=== PATIENT | female | born 1995 | race African-American/Black ===

== ENCOUNTER 2016-06-03 07:06 | Emergency (ER) | payer OTHER ==
[2016-06-03] MEDS ORDERED: ACETAMINOPHEN 325 MG TAB As Ordered ONE (07:28)
[2016-06-03 07:36] LABS: CONTROL LINE UCG INT CTR LINE PRESENT
--- NOTE | 2016-06-03 07:54 | EDDOCDS ---
Physician Documentation [facility] Name: Bia Garcia Age: 21 yrs Sex: Female : 1995 Arrival Date: 06/03/2016 Time: 07:06 Bed I5 / M5 Private MD: Disposition: 06/03/16 07:46 Discharged to Home/Self Care. Impression: Cystitis. - Condition is Stable. - Discharge Instructions: Urinary Tract Infection. - Prescriptions for Pyridium 200 mg Oral Tablet - take 1 tablet by ORAL route every 8 hours for 3 days; 9 tablet. Macrobid 100 mg Oral Capsule - take 100 milligrams by ORAL route every 12 hours for 5 days; 10 capsule. - Medication Reconciliation form. - Follow up: Emergency Department; When: As needed; Reason: Worsening of conditions. Follow up: Corbin Hernández [facility]; When: Call to arrange an appointment; Reason: Wound/Symptom Recheck, Recheck today's complaints, Worsening of conditions, Continuance of care. - Problem is an ongoing problem. - Symptoms are unchanged. Historical: - Allergies: no known allergies; - Home Meds: 1. none - PMHx: none; - PSHx: none; - Social history: Smoking status: Patient states was never smoker of tobacco. No barriers to communication noted, The patient speaks fluent Zambian, Speaks appropriately for age. - Family history: Not pertinent. - : The pt / caregiver states he / she is not on anticoagulants. Home medication list is obtained from the patient. - Exposure Risk Screening:: None identified. DIRECTOR OF RESEARCH AND DEVELOPMENT: 06/03 07:13 LMP 05/10/2016 mlb1 Vital Signs: 07:13 BP 125 / 68; Pulse 80; Resp 16; Temp 98.4(TE); Pulse Ox 99% on R/A; Weight 68.04 kg / mlb1 150 lbs (R); Height 5 ft. 5 in. (165.10 cm) (R); Pain 7/10; 07:13 Body Mass Index 24.96 (68.04 kg, 165.10 cm) mlb1 MDM: 07:19 UA Ordered. EDMS 07:19 UCG- In Lab Ordered. EDMS 07:22 Acetaminophen Tablet 650 mg PO once ordered. cc10 07:42 UA Reviewed. cc10 07:42 UCG- In Lab Reviewed. cc10 07:46 Financial registration complete. lg Administered Medications: 07:31 Drug: Acetaminophen 650 mg [acetaminophen 325 mg tablet (2 tabs)] Route: PO; sonido Signatures: Dispatcher [employer] Duy GonzalezRN RN Mairana Nye, Ashok Willis lg, RN RN mlb1 Adolfo Louis, PA-C PA-C cc10 MTDD
--- NOTE | 2016-06-03 07:54 | EDDOCDS ---
Nurse's Notes [facility] Name: Bia Garcia Age: 21 yrs Sex: Female : 1995 Arrival Date: 06/03/2016 Time: 07:06 Bed I5 / M5 Private MD: Diagnosis: Cystitis Presentation: 06/03 07:10 Presenting complaint: Patient states: Suprapubic pain with pain with urination and mlb1 hematuria pain began two days ago blood in urine today. Risk factors: the patient reports no vaginal bleeding. Adult Sepsis Screening: The patient does not have new or worsening altered mentation. Patient's respiratory rate is less than 22. Systolic blood pressure is greater than 100. Patient has a qSOFA score of 0- Negative Sepsis Screen. Suicide/Homicide risk assessment- the patient denies having any suicidal and/or homicidal ideations and does not present with any other emotional, behavioral or mental health complaints. 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 patient was not received from another setting of care. 07:10 Acuity: JOSEFA Level 4 mlb1 07:10 Method Of Arrival: Walkin/Carried/Asstd mlb1 Triage Assessment: 07:13 General: Appears in no apparent distress, Behavior is appropriate for age, cooperative. mlb1 Pain: Location: suprapubic area Pain currently is 7 out of 10 on a pain scale. Pt Declines HIV testing. : Reports hematuria pain with urination. 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 none - PMHx: none; - PSHx: none; - Social history: Smoking status: Patient states was never smoker of tobacco. No barriers to communication noted, The patient speaks fluent Bulgarian, Speaks appropriately for age. - Family history: Not pertinent. - : The pt / caregiver states he / she is not on anticoagulants. Home medication list is obtained from the patient. - Exposure Risk Screening:: None identified. Screenin:43 Screening information is obtained from the patient. Fall risk: No risks identified. jmk Assistance ADL's: requires no assistance with activities of daily living. Abuse/DV Screen: The patient / caregiver reports he/she is: not in a situation that causes fear, pain or injury. Nutritional screening: No deficits noted. Advance Directives: Currently, there is no health care proxy. There is no active DNR order. There is no living will. There is no Power of Certified Flight Instructor. home support is adequate. Assessment: 07:40 General: Appears in no apparent distress. Respiratory: No deficits noted. Airway is jmk patent. GI: Abdomen is flat, non- distended Bowel sounds present X 4 quads. Abd is soft and non tender. : Reports burning with urination. 07:42 General: Appears C/O diffuse head pain about forehead. Neuro intact. [facility] Vital Signs: 07:13 BP 125 / 68; Pulse 80; Resp 16; Temp 98.4(TE); Pulse Ox 99% on R/A; Weight 68.04 kg mlb1 (R); Height 5 ft. 5 in. (165.10 cm) (R); Pain 7/10; 07:13 Body Mass Index 24.96 (68.04 kg, 165.10 cm) [facility] Vitals: 07:13 Log In Time: June 03, 2016 at 07:03. b1 ED Course: 07:08 Patient visited by Anabel Boone. mm15 07:08 Patient moved to Waiting mm15 07:10 Patient visited by Ashok Oconnor, RN. mlb1 07:12 Triage Initiated mlb1 07:14 Patient visited by Ashok Oconnor, RN. mlb1 07:14 Patient visited by Ashok Oconnor, RN. mlb1 07:15 Patient moved to I5 / M5 mlb1 07:17 Adolfo Louis PA-C is PHCP. cc10 07:18 Hesham Matthews MD is Attending Physician. cc10 07:20 UCG- In Lab Sent. jmk 07:20 UA Sent. jmk 07:22 Patient visited by Adolfo Louis PA-C. cc10 07:22 Patient visited by Adolfo Louis PA-C. cc10 07:43 The patient / caregiver is instructed regarding the plan of care and ED course. jmk 07:46 Corbin Hernández [facility] is Referral Physician. cc10 07:53 No IV's were initiated during this patient's visit. No procedures done that require k assistance. Administered Medications: 07:31 Drug: Acetaminophen 650 mg [acetaminophen 325 mg tablet (2 tabs)] Route: PO; k Order Results: Lab Order: UA; SPEC'M 06/03/16 07:18 Test: APPEARANCE, URINE; Value: CLEAR; Range: CLEAR; Status: F Test: COLOR, URINE; Value: YELLOW; Range: YELLOW; Status: F Test: PH,URINE; Value: 7.0; Range: 5.0-9.0; Units: UNITS; Status: F Test: SPECIFIC GRAVITY URINE AUTO; Value: 1.015; Range: 1.002-1.035; Status: F Test: PROTEIN, URINE AUTO; Value: NEGATIVE; Range: NEGATIVE; Units: mg/dL; Status: F Test: GLUCOSE, URINE (UA) AUTO; Value: NEGATIVE; Range: NEGATIVE; Units: mg/dL; Status: F Test: KETONE, URINE AUTO; Value: NEGATIVE; Range: NEGATIVE; Units: mg/dL; Status: F Test: UROBILINOGEN, URINE AUTO; Value: 0.2; Range: 0.0-2.0; Units: mg/dL; Status: F Test: BILIRUBIN, URINE AUTO; Value: NEGATIVE; Range: NEGATIVE; Status: F Test: NITRITE, URINE AUTO; Value: NEGATIVE; Range: NEGATIVE; Status: F Test: LEUKOCYTE ESTERASE, URINE AUTO; Value: 2+; Range: NEGATIVE; Abnormal: Above high normal; Status: F Test: BLOOD, URINE BLOOD; Value: 1+; Range: NEGATIVE; Abnormal: Above high normal; Status: F Test: WBC, URINE AUTO; Value: 47; Range: 0-3; Abnormal: Above high normal; Units: /HPF; Status: F Test: RBC, URINE AUTO; Value: 10; Range: 0-3; Abnormal: Above high normal; Units: /HPF; Status: F Test: BACTERIA, URINE AUTO; Value: 1+; Range: NEGATIVE; Abnormal: Above high normal; Status: F Test: SQUAMOUS EPITHELIAL CELL UR AU; Value: 1; Range: 0-6; Units: /HPF; Status: F Test: HYALINE CAST, URINE AUTO; Value: 0; Range: 0-1; Units: /LPF; Status: F Lab Order: UCG- In Lab; SPEC'M 06/03/16 07:18 Test: URINE PREG TEST; Value: NEGATIVE; Range: NEGATIVE; Status: F Outcome: 07:46 Discharge ordered by Provider. 10 07:53 Discharge Assessment: Patient awake, alert and oriented x 3. No cognitive and/or k functional deficits noted. Patient verbalized understanding of disposition instructions. patient administered narcotics - no. The following High Risk Discharge criteria are identified: None. Discharged to home ambulatory. Condition: good. Discharge instructions given to patient, Instructed on discharge instructions, follow up and referral plans. medication usage, Demonstrated understanding of instructions, medications, Patient was not receptive of discharge instructions. Prescriptions given X 2. No special radiology studies were completed. Property :Personal belongings accompany Pt. 07:53 Patient left the ED. [facility] Signatures: Duy Freeman,RN RN Ashok Weiss RN RN Anabel Sahu mm15 Adolfo Louis, PAMehran PAMehran cc10 Corrections: (The following items were deleted from the chart) 07:14 07:13 LMP 04/26/2016 uday frye MTDD
--- NOTE | 2016-06-05 08:55 | EDDOCDS ---
Nurse's Notes [facility] Name: Bia Garcia Age: 21 yrs Sex: Female : 1995 Arrival Date: 06/03/2016 Time: 07:06 Bed I5 / M5 Private MD: Diagnosis: Cystitis Presentation: 06/03 07:10 Presenting complaint: Patient states: Suprapubic pain with pain with urination and mlb1 hematuria pain began two days ago blood in urine today. Risk factors: the patient reports no vaginal bleeding. Adult Sepsis Screening: The patient does not have new or worsening altered mentation. Patient's respiratory rate is less than 22. Systolic blood pressure is greater than 100. Patient has a qSOFA score of 0- Negative Sepsis Screen. Suicide/Homicide risk assessment- the patient denies having any suicidal and/or homicidal ideations and does not present with any other emotional, behavioral or mental health complaints. 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 patient was not received from another setting of care. 07:10 Acuity: JOSEFA Level 4 mlb1 07:10 Method Of Arrival: Walkin/Carried/Asstd mlb1 Triage Assessment: 07:13 General: Appears in no apparent distress, Behavior is appropriate for age, cooperative. mlb1 Pain: Location: suprapubic area Pain currently is 7 out of 10 on a pain scale. Pt Declines HIV testing. : Reports hematuria pain with urination. 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 none - PMHx: none; - PSHx: none; - Social history: Smoking status: Patient states was never smoker of tobacco. No barriers to communication noted, The patient speaks fluent Kiswahili, Speaks appropriately for age. - Family history: Not pertinent. - : The pt / caregiver states he / she is not on anticoagulants. Home medication list is obtained from the patient. - Exposure Risk Screening:: None identified. Screenin:43 Screening information is obtained from the patient. Fall risk: No risks identified. jmk Assistance ADL's: requires no assistance with activities of daily living. Abuse/DV Screen: The patient / caregiver reports he/she is: not in a situation that causes fear, pain or injury. Nutritional screening: No deficits noted. Advance Directives: Currently, there is no health care proxy. There is no active DNR order. There is no living will. There is no Power of Scaler. home support is adequate. Assessment: 07:40 General: Appears in no apparent distress. Respiratory: No deficits noted. Airway is jmk patent. GI: Abdomen is flat, non- distended Bowel sounds present X 4 quads. Abd is soft and non tender. : Reports burning with urination. 07:42 General: Appears C/O diffuse head pain about forehead. Neuro intact. [facility] Vital Signs: 07:13 BP 125 / 68; Pulse 80; Resp 16; Temp 98.4(TE); Pulse Ox 99% on R/A; Weight 68.04 kg mlb1 (R); Height 5 ft. 5 in. (165.10 cm) (R); Pain 7/10; 07:13 Body Mass Index 24.96 (68.04 kg, 165.10 cm) [facility] Vitals: 07:13 Log In Time: June 03, 2016 at 07:03. b1 ED Course: 07:08 Patient visited by Anabel Boone. mm15 07:08 Patient moved to Waiting mm15 07:10 Patient visited by Ashok Oconnor, RN. mlb1 07:12 Triage Initiated mlb1 07:14 Patient visited by Ashok Oconnor, RN. mlb1 07:14 Patient visited by Ashok Oconnor, RN. mlb1 07:15 Patient moved to I5 / M5 mlb1 07:17 Adolfo Louis PA-C is PHCP. cc10 07:18 Hesham Matthews MD is Attending Physician. cc10 07:20 UCG- In Lab Sent. jmk 07:20 UA Sent. jmk 07:22 Patient visited by Adolfo Louis PA-C. cc10 07:22 Patient visited by Adolfo Louis PA-C. cc10 07:43 The patient / caregiver is instructed regarding the plan of care and ED course. jmk 07:46 Corbin Hernández [facility] is Referral Physician. cc10 07:53 No IV's were initiated during this patient's visit. No procedures done that require k assistance. 08:18 Patient name changed from Bia\S\\S\Radha\S\ to Bia\S\Tamika\S\Radha. EDMS 08:19 [facility] [place] was scanned into [employer] and attached to record. lg 14:05 T-Sheet-- Draft Copy was scanned into [employer] and attached to record. gb Administered Medications: 07:31 Drug: Acetaminophen 650 mg [acetaminophen 325 mg tablet (2 tabs)] Route: PO; jmk Order Results: Lab Order: UA; SPEC'M 06/03/16 07:18 Test: APPEARANCE, URINE; Value: CLEAR; Range: CLEAR; Status: F Test: COLOR, URINE; Value: YELLOW; Range: YELLOW; Status: F Test: PH,URINE; Value: 7.0; Range: 5.0-9.0; Units: UNITS; Status: F Test: SPECIFIC GRAVITY URINE AUTO; Value: 1.015; Range: 1.002-1.035; Status: F Test: PROTEIN, URINE AUTO; Value: NEGATIVE; Range: NEGATIVE; Units: mg/dL; Status: F Test: GLUCOSE, URINE (UA) AUTO; Value: NEGATIVE; Range: NEGATIVE; Units: mg/dL; Status: F Test: KETONE, URINE AUTO; Value: NEGATIVE; Range: NEGATIVE; Units: mg/dL; Status: F Test: UROBILINOGEN, URINE AUTO; Value: 0.2; Range: 0.0-2.0; Units: mg/dL; Status: F Test: BILIRUBIN, URINE AUTO; Value: NEGATIVE; Range: NEGATIVE; Status: F Test: NITRITE, URINE AUTO; Value: NEGATIVE; Range: NEGATIVE; Status: F Test: LEUKOCYTE ESTERASE, URINE AUTO; Value: 2+; Range: NEGATIVE; Abnormal: Above high normal; Status: F Test: BLOOD, URINE BLOOD; Value: 1+; Range: NEGATIVE; Abnormal: Above high normal; Status: F Test: WBC, URINE AUTO; Value: 47; Range: 0-3; Abnormal: Above high normal; Units: /HPF; Status: F Test: RBC, URINE AUTO; Value: 10; Range: 0-3; Abnormal: Above high normal; Units: /HPF; Status: F Test: BACTERIA, URINE AUTO; Value: 1+; Range: NEGATIVE; Abnormal: Above high normal; Status: F Test: SQUAMOUS EPITHELIAL CELL UR AU; Value: 1; Range: 0-6; Units: /HPF; Status: F Test: HYALINE CAST, URINE AUTO; Value: 0; Range: 0-1; Units: /LPF; Status: F Lab Order: UCG- In Lab; SPEC'M 06/03/16 07:18 Test: URINE PREG TEST; Value: NEGATIVE; Range: NEGATIVE; Status: F Outcome: 07:46 Discharge ordered by Provider. cc10 07:53 Discharge Assessment: Patient awake, alert and oriented x 3. No cognitive and/or k functional deficits noted. Patient verbalized understanding of disposition instructions. patient administered narcotics - no. The following High Risk Discharge criteria are identified: None. Discharged to home ambulatory. Condition: good. Discharge instructions given to patient, Instructed on discharge instructions, follow up and referral plans. medication usage, Demonstrated understanding of instructions, medications, Patient was not receptive of discharge instructions. Prescriptions given X 2. No special radiology studies were completed. Property :Personal belongings accompany Pt. 07:53 Patient left the ED. sonido Signatures: Dispatcher [employer] EDMS Duy Freeman,RN RN Margie Pope, Reg Reg gb Mariana Jones, Reg Reg lg Elvin, Ashok Hdz RN RN Anabel Sahu mm15 Adolfo Louis, PA-C PA-C cc10 Corrections: (The following items were deleted from the chart) 07:14 07:13 LMP 04/26/2016 uday frye Chart Complete MTDD
--- NOTE | 2016-06-05 08:55 | EDDOCDS ---
Physician Documentation [facility] Name: Bia Garcia Age: 21 yrs Sex: Female : 1995 Arrival Date: 06/03/2016 Time: 07:06 Bed I5 / M5 Private MD: Disposition: 06/03/16 07:46 Discharged to Home/Self Care. Impression: Cystitis. - Condition is Stable. - Discharge Instructions: Urinary Tract Infection. - Prescriptions for Pyridium 200 mg Oral Tablet - take 1 tablet by ORAL route every 8 hours for 3 days; 9 tablet. Macrobid 100 mg Oral Capsule - take 100 milligrams by ORAL route every 12 hours for 5 days; 10 capsule. - Medication Reconciliation form. - Follow up: Emergency Department; When: As needed; Reason: Worsening of conditions. Follow up: Corbin Hernández [facility]; When: Call to arrange an appointment; Reason: Wound/Symptom Recheck, Recheck today's complaints, Worsening of conditions, Continuance of care. - Problem is an ongoing problem. - Symptoms are unchanged. Historical: - Allergies: no known allergies; - Home Meds: 1. none - PMHx: none; - PSHx: none; - Social history: Smoking status: Patient states was never smoker of tobacco. No barriers to communication noted, The patient speaks fluent Mosotho, Speaks appropriately for age. - Family history: Not pertinent. - : The pt / caregiver states he / she is not on anticoagulants. Home medication list is obtained from the patient. - Exposure Risk Screening:: None identified. RN TRAVEL: 06/03 07:13 LMP 05/10/2016 mlb1 Vital Signs: 07:13 BP 125 / 68; Pulse 80; Resp 16; Temp 98.4(TE); Pulse Ox 99% on R/A; Weight 68.04 kg / mlb1 150 lbs (R); Height 5 ft. 5 in. (165.10 cm) (R); Pain 7/10; 07:13 Body Mass Index 24.96 (68.04 kg, 165.10 cm) mlb1 MDM: 07:19 UA Ordered. EDMS 07:19 UCG- In Lab Ordered. EDMS 07:22 Acetaminophen Tablet 650 mg PO once ordered. cc10 07:42 UA Reviewed. cc10 07:42 UCG- In Lab Reviewed. cc10 07:46 Financial registration complete. lg 08:19 [facility] Payment Agreement was scanned into [employer] and attached to record. lg 14:05 T-Sheet-- Draft Copy was scanned into [employer] and attached to record. gb Administered Medications: 07:31 Drug: Acetaminophen 650 mg [acetaminophen 325 mg tablet (2 tabs)] Route: PO; osnido Signatures: Dispatcher [employer] Duy Gonzalez RN RN Margie Pope, Reg Reg gb Mariana Jones, Reg Reg lg Ashok Oconnor RN RN mlb1 Adolfo Louis, PA-C PA-C cc10 The chart was reviewed and I authenticate all verbal orders and agree with the evaluation and treatment provided.Attachments: 08:19 [facility] Payment Agreement lg 14:05 T-Sheet-- Draft Copy gb Chart Complete MTDD
--- NOTE | 2016-06-05 08:55 | EDDOCDS ---
Physician Documentation [facility] Name: Bia Garcia Age: 21 yrs Sex: Female : 1995 Arrival Date: 06/03/2016 Time: 07:06 Bed I5 / M5 Private MD: Disposition: 06/03/16 07:46 Discharged to Home/Self Care. Impression: Cystitis. - Condition is Stable. - Discharge Instructions: Urinary Tract Infection. - Prescriptions for Pyridium 200 mg Oral Tablet - take 1 tablet by ORAL route every 8 hours for 3 days; 9 tablet. Macrobid 100 mg Oral Capsule - take 100 milligrams by ORAL route every 12 hours for 5 days; 10 capsule. - Medication Reconciliation form. - Follow up: Emergency Department; When: As needed; Reason: Worsening of conditions. Follow up: Corbin Hernández [facility]; When: Call to arrange an appointment; Reason: Wound/Symptom Recheck, Recheck today's complaints, Worsening of conditions, Continuance of care. - Problem is an ongoing problem. - Symptoms are unchanged. Historical: - Allergies: no known allergies; - Home Meds: 1. none - PMHx: none; - PSHx: none; - Social history: Smoking status: Patient states was never smoker of tobacco. No barriers to communication noted, The patient speaks fluent Kenyan, Speaks appropriately for age. - Family history: Not pertinent. - : The pt / caregiver states he / she is not on anticoagulants. Home medication list is obtained from the patient. - Exposure Risk Screening:: None identified. 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 5 in. (165.10 cm) (R); Pain 7/10; 07:13 Body Mass Index 24.96 (68.04 kg, 165.10 cm) mlb1 MDM: 07:19 UA Ordered. EDMS 07:19 UCG- In Lab Ordered. EDMS 07:22 Acetaminophen Tablet 650 mg PO once ordered. cc10 07:42 UA Reviewed. cc10 07:42 UCG- In Lab Reviewed. cc10 07:46 Financial registration complete. lg 08:19 [facility] Payment Agreement was scanned into [employer] and attached to record. lg 14:05 T-Sheet-- Draft Copy was scanned into [employer] and attached to record. gb Administered Medications: 07:31 Drug: Acetaminophen 650 mg [acetaminophen 325 mg tablet (2 tabs)] Route: PO; sonido Signatures: Dispatcher [employer] Duy Gonzalez RN RN Margie Pope, Reg Reg gb Mariana Jones, Reg Reg lg Ashok Oconnor RN RN mlb1 Adolfo Louis, PA-C PA-C cc10 The chart was reviewed and I authenticate all verbal orders and agree with the evaluation and treatment provided.Attachments: 08:19 [facility] Payment Agreement lg 14:05 T-Sheet-- Draft Copy gb Chart Complete MTDD
== END 2016-06-03 07:53 | disposition home or self-care (01) ==
LOC: M ED 07:06
DX: N30.90 Cystitis, unspecified without hematuria (principal)

== ENCOUNTER 2018-06-21 10:09 | Emergency (ER) | payer OTHER ==
[~2018-06-21] VITALS: Ht 165.1 cm; Wt 89.1 kg
[2018-06-21] MEDS ORDERED: IBUPROFEN 600 MG TAB PO ONE (11:30)
--- NOTE | 2018-06-21 12:35 | REP ---
PELVIC SONOGRAPHY: HISTORY: Right-sided pelvic pain. Question ovarian cyst. FINDINGS: Transabdominal and transvaginal scanning are performed. Study is inhibited by patient's inability to move and remained calm. Apparently, she had difficulty with rigidity and shaking during the examination. The visualized bladder park are smooth. Uterine dimensions are normal at 6.8 x 3.5 x 3.7 cm. Endometrial echo is 0.3 cm thick and centrally placed. No focal uterine mass is seen. Uterus is retroverted and retroflexed. Normal ovaries are seen bilaterally. Right ovary measures 4.4 x 2.4 x 2.7 cm. Left ovary measures 4.7 x 2.5 x 3.9 cm. Doppler flow is normal to both ovaries. Resistive indices are 0.69 on the right and 0.59 on the left. IMPRESSION: Retroverted, retroflexed uterus. Otherwise, negative pelvic sonography. No morphologic abnormality. Electronically Signed by Eric Sewell MD 06/21/2018 08:35 P
[2018-06-21] MEDS ORDERED: IBUP80TA PO (13:33)
[2018-06-21 13:41] VITALS: BP 131/70
== END 2018-06-21 13:47 | disposition home or self-care (01) ==
LOC: M ED 10:09 → EDSEX 10:09 → M ED 13:47
DX: R10.2 Pelvic and perineal pain (principal); N92.6 Irregular menstruation, unspecified

== ENCOUNTER 2019-11-10 04:04 | Emergency (ER) | payer OTHER ==
[~2019-11-10] VITALS: Ht 165.1 cm; Wt 120.0 kg
[~2019-11-10 04:04] MED LIST: IBUP80TA PO; RALTEGRAVIR 400 MG TAB (ISENTRESS) PO SCH; TRUVADA 200MG/300MG TABLET PO SCH
[2019-11-10 04:05] VITALS: BP 142/99
[2019-11-10] MEDS ORDERED: EXPOSURE KIT-ADULT 7 DAY SUPPLY PO ONE (06:00)
[2019-11-10] MEDS ORDERED: AZITHROMYCIN 250MG TABLET PO ONE (06:00)
[2019-11-10] MEDS ORDERED: cefTRIAXone SOD 250MG VIAL (J0696 PER 250MG) IM ONE (06:00)
[2019-11-10] MEDS ORDERED: LIDOCAINE 1% SDV 5ML VIAL DILUENT ONE (06:00)
[2019-11-10] MEDS ORDERED: DOXY100C37 PO (06:11)
[2019-11-10] MEDS ORDERED: RALT40TA PO (06:11)
[2019-11-10] MEDS ORDERED: TRUVTAB PO (06:11)
[2019-11-10] MEDS ORDERED: RALTEGRAVIR 400 MG TAB (ISENTRESS) PO ONE (06:30)
[2019-11-10] MEDS ORDERED: TRUVADA 200MG/300MG TABLET PO ONE (06:30)
[2019-11-10 07:47] LABS: CHLAMYDIA DNA AMPLIFICATION NEGATIVE (NEGATIVE); GC DNA AMPLIFICATION NEGATIVE (NEGATIVE)
[2019-11-10 07:49] LABS: CHLAMYDIA DNA AMPLIFICATION NEGATIVE (NEGATIVE); GC DNA AMPLIFICATION NEGATIVE (NEGATIVE)
[2019-11-10] MEDS ORDERED: FLAG500T PO (11:02)
== END 2019-11-10 06:53 | disposition home or self-care (01) ==
LOC: M ED 04:04
DX: Z04.41 Encounter for examination and observation following alleged adult rape (principal)
CPT/HCPCS: 87210; 87491; 87591; 96372; 99283; J0696

== ENCOUNTER 2020-05-15 13:36 | Outpatient (CLI) | payer OTHER ==
[2020-05-15] VITALS (9 sets, daily range): BP systolic 132–164; BP diastolic 75–96
[~2020-05-15] VITALS: Ht 157.5 cm; Wt 126.9 kg
[~2020-05-15 13:36] MED LIST changes: +DOXY100C37 PO; +FLAG500T PO; +RALT40TA PO; -RALTEGRAVIR 400 MG TAB (ISENTRESS) PO SCH; -TRUVADA 200MG/300MG TABLET PO SCH; +TRUVTAB PO
[2020-05-15] MEDS ORDERED: ACET325C5 PO (14:18)
[2020-05-15] MEDS ORDERED: PRENTAB9 PO (14:18)
[2020-05-15] MEDS ORDERED: ASPI81CH33 PO (14:20)
[2020-05-15 15:28] LABS: HEMATOCRIT 37.2 % (36.0-47.0); HEMOGLOBIN 12.3 g/dl (12.0-15.5); MEAN CORPUSCULAR HEMOGLOBIN 29.5 pg (27.0-33.0); MEAN CORPUSCULAR HGB CONC 33.1 g/dl (32.0-36.5); MEAN CORPUSCULAR VOLUME 89.2 fl (80.0-96.0); PLATELET COUNT, AUTOMATED 257 10^3/uL (150-450); RED BLOOD COUNT 4.17 10^6/uL (4.00-5.40); WHITE BLOOD COUNT 7.5 10^3/uL (4.0-10.0)
[2020-05-15 15:45] LABS: HEMOGLOBIN A1c 4.9 %
[2020-05-15 15:59] LABS: TOTAL PROTEIN,RANDOM URINE 23.3 MG/DL (0.0-12.0)
[2020-05-15 16:03] LABS: ALT/SGPT 22 U/L (12-78); BILIRUBIN,TOTAL 0.3 MG/DL (0.2-1.0); BLOOD UREA NITROGEN 4 MG/DL (7-18); CALCIUM LEVEL 8.9 MG/DL (8.5-10.1); CARBON DIOXIDE LEVEL 26 MEQ/L (21-32); CHLORIDE LEVEL 104 MEQ/L (98-107); CREATININE FOR GFR 0.75 MG/DL (0.55-1.30); GLOMERULAR FILTRATION RATE > 60.0 (>60); GLUCOSE, FASTING 76 MG/DL (70-100); LDH LACTATE DEHYDROGENASE 229 U/L (84-246); POTASSIUM SERUM 3.1 MEQ/L (3.5-5.1); SODIUM LEVEL 137 MEQ/L (136-145); URIC ACID 2.2 MG/DL (2.6-6.0)
--- NOTE | 2020-05-15 16:05 | REP ---
INDICATION: IUP 28 WEEKS GESTATION, RIGHT UPPER QUAD PAIN COMPARISON: None. TECHNIQUE: Real time moreno scale ultrasound examination using curved array transducer. FINDINGS: Liver is normal in contour, size, and echogenicity without focal hepatic lesions identified. Pancreas is incompletely evaluated due to interposed bowel gas. Gallbladder demonstrates layering sludge and positive sonographic Melo sign. No associated gallbladder wall thickening, pericholecystic fluid, or biliary ductal dilatation is appreciated. Common bile duct measures 3 mm diameter. Right kidney is normal in reniform shape without hydronephrosis or perinephric stranding and measures 11.3 x 5.8 x 4.6 cm. No ascites in the visualized right upper quadrant. IMPRESSION: Gallbladder with sludge and positive sonographic Melo sign are nonspecific findings and although there is no wall thickening or pericholecystic fluid and no biliary ductal dilatation, early acute cholecystitis cannot definitively be excluded. <Electronically signed by Aaron Guzman > 05/15/20 [id number]
--- NOTE | 2020-05-15 16:07 | REP ---
INDICATION: 28 WEEKS GESTATION, ELEVATED BP COMPARISON: None. TECHNIQUE: Transabdominal obstetrical ultrasound with color Doppler evaluation. FINDINGS: Examination demonstrates a single live intrauterine in cephalic presentation. motion is identified by technologist. Placenta is noted anterior and grade 1 without evidence for placenta previa or abruption. heart rate: 144 BPM RAMONA: 14.2 cm (9.4-22.8) Biophysical profile score: 8/8 Umbilical artery SD ratio: 2.14 (2.09-4.36) IMPRESSION: Single live intrauterine in cephalic presentation. Biophysical profile score and amniotic fluid volume are normal. <Electronically signed by Aaron Guzman > 05/15/20 [id number]
--- NOTE | 2020-05-15 17:47 | IPNPDOC ---
Text Note Date of Service The patient was seen on 05/15/20. NOTE 24 YO SENT FROM OFFICE WITH HISTORY ELEVATED BP,, RUQ PAIN, BLURRY VISION FOR EVALUATION RE POSSIBLE PRE E . LMP 10/23/19 EDC 08/07/2020 AT 27.6 WEEKS . RISK FACTORS CHTN BMI 41.6 REVIEW WITH PATIENT BLURRED VISION NOT WEARING GLASSES X 1 WEEK . ACUTE ONSET RUQ PAIN . DENIES FOOD ISSUES PRESENTLY COLLECTING 24 HOUR URINE. ASSESSMENT HERE PRE E LABS NORMAL P/C RATIO 0.02 LIVER ENZYMES NORMAL . CATAGORY 1 STRIP NO CONTRACTIONS NO DECELERATIONS MODERATE VARIBILITY BASELINE NORMAL. POSITIVE MELO SIGN, US CONFIRM ACUTE CHOLECYSTITIS.BLOOD PRESSURE ARE MID RANGE CORRELATES WITH CHTN HISTORY . PLAN CONTINUE 24 HOUR COLLECTION URINE, TAKE BP MEDICATION F/UP OFFICE WITH BP CHECKS . CONTINUE WITH ASA DAILY. VS,Fishbone, I+O VS, Fishbone, I+O Item Value Date Time Urine Random Creatinine 115.0 MG/DL 05/15/20 1520 Urine Random Total Protein 23.3 MG/DL H 05/15/20 1520 Item Value Date Time Sodium Level 137 MEQ/L 05/15/20 1519 Potassium Level 3.1 MEQ/L L 05/15/20 1519 Chloride Level 104 MEQ/L 05/15/20 1519 Carbon Dioxide Level 26 MEQ/L 05/15/20 1519 Anion Gap 7 MEQ/L L 05/15/20 1519 Blood Urea Nitrogen 4 MG/DL L 05/15/20 1519 Creatinine 0.75 MG/DL 05/15/20 1519 Glomerular Filtration Rate > 60.0 05/15/20 1519 Fasting Glucose 76 MG/DL 05/15/20 1519 Estimated Mean Plasma Glucose 94 MG/DL 05/15/20 1519 Hemoglobin A1c 4.9 % 05/15/20 1519 Uric Acid 2.2 MG/DL L 05/15/20 1519 Calcium Level 8.9 MG/DL 05/15/20 1519 Total Bilirubin 0.3 MG/DL 05/15/20 1519 Aspartate Amino Transf (AST/SGOT) 17 U/L 05/15/20 1519 Alanine Aminotransferase (ALT/SGPT) 22 U/L 05/15/20 1519 Lactate Dehydrogenase 229 U/L 05/15/20 1519 Item Value Date Time White Blood Count 7.5 10^3/uL 05/15/20 1519 Red Blood Count 4.17 10^6/uL 05/15/20 1519 Hemoglobin 12.3 g/dl 05/15/20 1519 Hematocrit 37.2 % 05/15/20 1519 Mean Corpuscular Volume 89.2 fl 05/15/20 1519 Mean Corpuscular Hemoglobin 29.5 pg 05/15/20 1519 Mean Corpuscular Hemoglobin Concent 33.1 g/dl 05/15/20 1519 Red Cell Distribution Width 13.3 % 05/15/20 1519 Platelet Count 257 10^3/uL 05/15/20 1519 Nucleated Red Blood Cells % (auto) 0.0 % 05/15/20 1519 Laboratory Tests 05/15/20 15:19 Vital Signs Date Time Temp Pulse Resp B/P (MAP) Pulse Ox O2 Delivery O2 Flow Rate FiO2 05/15/20 17:00 98.5 18 05/15/20 16:33 92 157/84 (108) 05/15/20 14:49 99 Room Air [facility] NAME: KAMRAN BURRELL DATE OF : 1995 AGE: 25 SEX: F REPORT #: [id number] ROOM: [facility] TECHNOLOGIST: [facility] DOCTOR: Adelso Arredondo MD Ordered for Date&Time: 05/15/20 1509 cc: [~ rep ct ivnm] Service Date&Time: 05/15/20 1552 This report is in Signed status. If this report is in a DRAFT status it has not yet been reviewed by the radiologist for accuracy. Thank you for having your radiology procedures performed at [facility] RADIOLOGY REPORT Date&Time printed: [~ rep prt dt last] [~ rep prt tm last] Page 2 of 2 [place] [address] RADIOLOGY REPORT This report is in Signed status. If this report is in a DRAFT status it has not yet been reviewed by the radiologist for accuracy. Thank you for having your radiology procedures performed at [facility] RADIOLOGY REPORT Date&Time printed: [~ rep prt dt last] [~ rep prt tm last] Page 1 of 2 INDICATION: 28 WEEKS GESTATION, ELEVATED BP COMPARISON: None. TECHNIQUE: Transabdominal obstetrical ultrasound with color Doppler evaluation. FINDINGS: Examination demonstrates a single live intrauterine in cephalic presentation. motion is identified by technologist. Placenta is noted anterior and grade 1 without evidence for placenta previa or abruption. heart rate: 144 BPM RAMONA: 14.2 cm (9.4-22.8) Biophysical profile score: 8/8 Umbilical artery SD ratio: 2.14 (2.09-4.36) IMPRESSION: Single live intrauterine in cephalic presentation. Biophysical profile score and amniotic fluid volume are normal. <Electronically signed by Aaron Guzman > 05/15/20 160 DD: Aaron Guzman MD 05/15/20 160 DT: PAL 05/15/201603 DS: RADHA 05/15/20160105/15/201601 [~ rep ct labl] INDICATION: IUP 28 WEEKS GESTATION, RIGHT UPPER QUAD PAIN COMPARISON: None. TECHNIQUE: Real time moreno scale ultrasound examination using curved array transducer. FINDINGS: Liver is normal in contour, size, and echogenicity without focal hepatic lesions identified. Pancreas is incompletely evaluated due to interposed bowel gas. Gallbladder demonstrates layering sludge and positive sonographic Melo sign. No associated gallbladder wall thickening, pericholecystic fluid, or biliary ductal dilatation is appreciated. Common bile duct measures 3 mm diameter. Right kidney is normal in reniform shape without hydronephrosis or perinephric stranding and measures 11.3 x 5.8 x 4.6 cm. No ascites in the visualized right upper quadrant. IMPRESSION: Gallbladder with sludge and positive sonographic Melo sign are nonspecific findings and although there is no wall thickening or pericholecystic fluid and no biliary ductal dilatation, early acute cholecystitis cannot definitively be excluded. <Electronically signed by Aaron Guzman > 05/15/20 1601 Adelso Arredondo MD May 15, 2020 17:46
== END 2020-05-15 17:15 | disposition home or self-care (01) ==
LOC: M LDO 13:36
PROVIDERS: ATTEND Obstetrics & Gynecology
DX: O16.3 Unspecified maternal hypertension, third trimester (principal); Z3A.28 28 weeks gestation of pregnancy
CPT/HCPCS: 36415; 76705; 76815; 76819; 76820; 80048; 82247; 82565; 82570; 83036; 83615; 84156; 84450; 84460; 84550; 85027; G0378; G0463

== ENCOUNTER → 2020-05-23 | Outpatient (REF) | payer OTHER ==
[~2020-05-23] MED LIST changes: +ACET325C5 PO; +ASPI81CH33 PO; +PRENTAB9 PO
[2020-05-23 14:39] LABS: URINE TOTAL PROTEIN 27.5 MG/DL (0-12)
== END ==
LOC: M LAB REF 13:33
PROVIDERS: ATTEND Obstetrics & Gynecology
DX: O13.9 Gestational [pregnancy-induced] hypertension without significant proteinuria, unspecified trimester (principal)

== ENCOUNTER 2020-06-30 19:12 | Outpatient (CLI) | payer OTHER ==
[~2020-06-30] VITALS: Ht 165.1 cm; Wt 124.0 kg
[2020-06-30 19:22] VITALS: BP 131/77
[2020-06-30] MEDS ORDERED: LABE100T36 PO (19:46)
[2020-06-30] MEDS ORDERED: ACETAMINOPHEN 500 MG TAB PO ONE (20:00)
[2020-06-30 20:12] VITALS: BP 121/70
[2020-06-30 20:13] LABS: HEMATOCRIT 36.5 % (36.0-47.0); HEMOGLOBIN 12.4 g/dl (12.0-15.5); MEAN CORPUSCULAR HEMOGLOBIN 29.3 pg (27.0-33.0); MEAN CORPUSCULAR VOLUME 86.3 fl (80.0-96.0); PLATELET COUNT, AUTOMATED 238 10^3/uL (150-450); RED BLOOD COUNT 4.23 10^6/uL (4.00-5.40); WHITE BLOOD COUNT 7.1 10^3/uL (4.0-10.0)
[2020-06-30 20:44] LABS: TOTAL PROTEIN,RANDOM URINE 32.3 MG/DL (0.0-12.0)
[2020-06-30 20:46] LABS: ALBUMIN 2.7 GM/DL (3.2-5.2); ALT/SGPT 22 U/L (12-78); BILIRUBIN,TOTAL 0.1 MG/DL (0.2-1.0); BLOOD UREA NITROGEN 4 MG/DL (7-18); CALCIUM LEVEL 9.2 MG/DL (8.5-10.1); CARBON DIOXIDE LEVEL 23 MEQ/L (21-32); CHLORIDE LEVEL 106 MEQ/L (98-107); CREATININE FOR GFR 0.69 MG/DL (0.55-1.30); GLOMERULAR FILTRATION RATE > 60.0 (>60); GLUCOSE, FASTING 73 MG/DL (70-100); LDH LACTATE DEHYDROGENASE 227 U/L (84-246); POTASSIUM SERUM 3.6 MEQ/L (3.5-5.1); SODIUM LEVEL 138 MEQ/L (136-145); TOTAL PROTEIN 6.4 GM/DL (6.4-8.2); URIC ACID 2.5 MG/DL (2.6-6.0)
[2020-06-30] MEDS ORDERED: OMEPRAZOLE 20 MG CAP PO ONE (21:00)
[2020-06-30] MEDS ORDERED: PROMETHAZINE INJ 25 MG/ML VIAL (J2550) IM ONE (21:00)
[2020-06-30] MEDS ORDERED: PROMETHAZINE INJ 25 MG/ML VIAL (J2550) IV ONE (21:15)
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
== END 2020-06-30 23:00 | disposition home or self-care (01) ==
LOC: M LDO 19:12
PROVIDERS: ATTEND Obstetrics & Gynecology
DX: O21.8 Other vomiting complicating pregnancy (principal); O10.013 Pre-existing essential hypertension complicating pregnancy, third trimester; Z3A.34 34 weeks gestation of pregnancy
CPT/HCPCS: 36415; 59025; 80053; 82570; 83615; 84156; 84450; 84550; 85027; 96374; G0378; G0463

== ENCOUNTER 2020-07-15 18:17 | Outpatient (CLI) | payer OTHER ==
[~2020-07-15] VITALS: Ht 165.1 cm; Wt 135.0 kg
[~2020-07-15 18:17] MED LIST changes: +LABE100T5 PO
[2020-07-15 18:32] VITALS: BP 164/77
[2020-07-15 18:52] VITALS: BP 145/86
--- NOTE | 2020-07-15 19:36 | REPVR ---
PROCEDURE INFORMATION: Exam: US Abdomen, Limited; Right Upper Quadrant Exam date and time: 07/15/2020 7:18 PM Age: 25 years old Clinical indication: Abdominal pain; Acute; ; Additional info: Ruq pain risks for pre-eclampsia / hellp / afld TECHNIQUE: Imaging protocol: US abdomen. Real time ultrasound with image documentation. Limited exam focused on the right upper quadrant. COMPARISON: Abdomen, limited US 05/15/2020 4:32 PM FINDINGS: Liver: Normal. No masses. Gallbladder: Normal. No gallstones. There is no gallbladder wall thickening. Common bile duct: The common bile duct measures 3.3 mm. No mass or choledocholithiasis. Pancreas: Pancreas obscured by overlying bowel gas. Right kidney: Right kidney measures 10.5 x 5.6 x 4.9 cm. Other findings: Incidental note is made of the gravid status of the patient with heart rate of 131 bpm. IMPRESSION: No acute findings. Electronically signed by: Jared Vernon On 07/15/2020 19:36:51 PM
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
[2020-07-15] MEDS ORDERED: FLUCONAZOLE 50MG TABLET PO ONE (19:40)
[2020-07-15 19:43] LABS: CREATININE,RANDOM URINE 67.5 MG/DL; TOTAL PROTEIN,RANDOM URINE 16.9 MG/DL (0.0-12.0)
[2020-07-15] MEDS ORDERED: METOCLOPRAMIDE INJ 10MG/2ML VIAL (J2765 PER 1) IV ONE (19:45)
[2020-07-15] MEDS ORDERED: ONDANSETRON 4MG/2ML VIAL IV SCH (19:45)
[2020-07-15] MEDS ORDERED: ACETAMINOPHEN *IV* 1,000 MG in IV 1 EA IV ONE (19:45)
[2020-07-15 19:50] LABS: APPEARANCE, URINE CLEAR (CLEAR); BACTERIA, URINE AUTO NEGATIVE (NEGATIVE); BILIRUBIN, URINE AUTO NEGATIVE (NEGATIVE); BLOOD, URINE BLOOD NEGATIVE (NEGATIVE); COLOR, URINE YELLOW (YELLOW); GLUCOSE, URINE (UA) AUTO NEGATIVE (NEGATIVE); KETONE, URINE AUTO NEGATIVE (NEGATIVE); LEUKOCYTE ESTERASE, URINE AUTO NEGATIVE (NEGATIVE); NITRITE, URINE AUTO NEGATIVE (NEGATIVE); PROTEIN, URINE AUTO NEGATIVE (NEGATIVE); RBC, URINE AUTO 0 /HPF (0-3); SPECIFIC GRAVITY URINE AUTO 1.003 (1.002-1.035); SQUAMOUS EPITHELIAL CELL UR AU 4 /HPF (0-6); UROBILINOGEN, URINE AUTO 0.2 mg/dL (0.0-2.0); WBC, URINE AUTO 1 /HPF (0-3)
[2020-07-15] MEDS ORDERED: PILL CUTTER 1 EACH XX PRN (19:50)
[2020-07-15 20:05] VITALS: BP 133/67
[2020-07-15 20:24] LABS: HEMATOCRIT 38.6 % (36.0-47.0); HEMOGLOBIN 12.9 g/dl (12.0-15.5); MEAN CORPUSCULAR HEMOGLOBIN 28.9 pg (27.0-33.0); MEAN CORPUSCULAR HGB CONC 33.4 g/dl (32.0-36.5); MEAN CORPUSCULAR VOLUME 86.4 fl (80.0-96.0); PLATELET COUNT, AUTOMATED 247 10^3/uL (150-450); RED BLOOD COUNT 4.47 10^6/uL (4.00-5.40)
[2020-07-15 20:57] LABS: ALT/SGPT 19 U/L (12-78); BILIRUBIN,TOTAL 0.3 MG/DL (0.2-1.0); CREATININE FOR GFR 0.81 MG/DL (0.55-1.30); GLOMERULAR FILTRATION RATE > 60.0 (>60); LDH LACTATE DEHYDROGENASE 253 U/L (84-246); NT-PRO BNP 7 PG/ML (<125); TROPONIN I < 0.02 NG/ML (< 0.10); URIC ACID 2.9 MG/DL (2.6-6.0)
[2020-07-15] MEDS ORDERED: FAMOTIDINE 20 MG TAB PO SCH (21:00)
[2020-07-15 21:10] VITALS: BP 125/57
--- NOTE | 2020-07-16 19:35 | ECGEPIP ---
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
== END 2020-07-15 22:20 | disposition home or self-care (01) ==
LOC: M LDO 18:17
PROVIDERS: ATTEND Obstetrics & Gynecology
DX: O26.893 Other specified pregnancy related conditions, third trimester (principal); R10.11 Right upper quadrant pain; O21.8 Other vomiting complicating pregnancy; O23.593 Infection of other part of genital tract in pregnancy, third trimester; B37.3 Candidiasis of vulva and vagina; Z91.018 Allergy to other foods; Z3A.36 36 weeks gestation of pregnancy
CPT/HCPCS: 59025; 76705; 76815; 81001; 82247; 82565; 82570; 83615; 83880; 84156; 84450; 84460; 84484; 84550; 85027; 86780; 86850; 86900; 86901; 93005; 96374; 96375; G0378; G0463; J0131; J2405; J2765

== ENCOUNTER 2020-07-18 07:17 | Inpatient (IN) | payer OTHER ==
[2020-07-18] VITALS (21 sets, daily range): BP systolic 104–162; BP diastolic 52–90
[~2020-07-18] VITALS: Ht 165.1 cm; Wt 124.3 kg
[2020-07-18] MEDS ORDERED: LACTATED RINGER'S 1000 ML IV STA (07:40)
[2020-07-18] MEDS ORDERED: miSOPROStol 50MCG 1/2 TABLET PO ONE (08:00)
[2020-07-18] MEDS ORDERED: OXYTOCIN DRIP 30 UNITS in IV 1 EA IV SCH (08:00)
[2020-07-18 08:19] LABS: HEMATOCRIT 36.8 % (36.0-47.0); MEAN CORPUSCULAR HEMOGLOBIN 28.5 pg (27.0-33.0); MEAN CORPUSCULAR HGB CONC 32.6 g/dl (32.0-36.5); MEAN CORPUSCULAR VOLUME 87.4 fl (80.0-96.0); PLATELET COUNT, AUTOMATED 230 10^3/uL (150-450); RED BLOOD COUNT 4.21 10^6/uL (4.00-5.40); WHITE BLOOD COUNT 5.8 10^3/uL (4.0-10.0)
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
[2020-07-18 12:17] LABS: ALT/SGPT 21 U/L (12-78); BILIRUBIN,TOTAL 0.3 MG/DL (0.2-1.0); CREATININE FOR GFR 0.83 MG/DL (0.55-1.30); GLOMERULAR FILTRATION RATE > 60.0 (>60); LDH LACTATE DEHYDROGENASE 335 U/L (84-246); URIC ACID 3.2 MG/DL (2.6-6.0)
[2020-07-18] MEDS: OMEPRAZOLE 20 MG CAP PO SCH ×2 (12:22→21:02)
[2020-07-18] MEDS ORDERED: miSOPROStol 50MCG 1/2 TABLET PO PRN (14:00)
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
[2020-07-18] MEDS ORDERED: EPIDURAL COMMENT XX SCH (18:50)
[2020-07-18] MEDS ORDERED: REFRIGERATOR IV KEYS XX PRN (18:50)
[2020-07-18] MEDS ORDERED: diphenhydrAMINE 50MG/ML VIAL (J1200) IV PRN (18:50)
[2020-07-18] MEDS ORDERED: EPIDURAL/PCA KEYS XX PRN (18:50)
[2020-07-18] MEDS ORDERED: LACTATED RINGER'S 1000 ML IV PRN (18:50)
[2020-07-18] MEDS ORDERED: NALOXONE INJ 0.4MG/1ML VIAL (J2310 PER 1MG) IV PRN (18:50)
[2020-07-18] MEDS ORDERED: ePHEDrine SULFATE 25 MG/5 ML(5MG/ML) SYRINGE IV PRN (18:50)
[2020-07-18] MEDS: FENTANYL/ROPIVACAINE/NACL BAG 100 ML EPIDURAL SCH (18:54)
[2020-07-18] MEDS: LR 1,000 ML IV SCH (19:13)
[2020-07-18] MEDS: ONDANSETRON 4MG/2ML VIAL IV PRN (19:36)
--- NOTE | 2020-07-18 20:22 | IPNPDOC ---
Obstetrical Progress Note Date of Service Jul 18, 2020 Subjective To room after epidural placement. Patient reports no complaints. Objective Vital Signs Date Time Temp Pulse Resp B/P (MAP) Pulse Ox O2 Delivery O2 Flow Rate FiO2 07/18/20 19:54 96 118/54 (75) 07/18/20 19:12 97.5 18 98 Room Air Assessment Heart Rate (FHR): 135 Variability: Moderate Accelerations: Positive Decelerations: None Heart Rate Tracing: Category I Tocometer Contractions: Yes Frequency: irregular Sterile Vaginal Examination Dilation: 3 cm Effacement (%): 50% Station: -3 Cervical Consistency: Soft Cervical Position: Middle Postion/Presentation: Cephalic presentation (by exam) Assessment and Plan Status: Reassuring Anticipate: Vaginal Delivery Additional Comments Patient now has epidural and a SVE was able to be performed. She is 350/-3, a DLFB was placed. She has is due for cytotec but she is having irregular frequent contractions, will continue to monitor for pattern to establish and consider addition of 25mcg cytotec PO when appropriate. Otherwise will wait for DLFB to come out and start pit. She has had one severe range BP but the repeat was mild range. she has no si/sx of pre-e. Will reassess in 4-6h or sooner if clinically indicated. AGGIE RABAGO DO Jul 18, 2020 20:22
[2020-07-19] VITALS (69 sets, daily range): BP systolic 106–189; BP diastolic 51–88
[2020-07-19] MEDS ORDERED: ACETAMINOPHEN 325 MG TAB PO ONE (01:45)
--- NOTE | 2020-07-19 01:48 | IPNPDOC ---
Obstetrical Progress Note Date of Service Jul 19, 2020 Subjective To room for routine assessment. Patient has no complaints at this time. Objective Vital Signs Date Time Temp Pulse Resp B/P (MAP) Pulse Ox O2 Delivery O2 Flow Rate FiO2 07/18/20 23:53 113 121/57 (78) 07/18/20 22:53 97.9 16 98 Room Air Assessment Heart Rate (FHR): 130 Variability: Moderate Accelerations: Positive Decelerations: None Heart Patterns: Tachycardia Heart Rate Tracing: Category I Tocometer Contractions: Yes Frequency: regular Sterile Vaginal Examination Dilation: 5 cm Effacement (%): 50% Station: -3 Cervical Consistency: Soft Cervical Position: Middle Postion/Presentation: Cephalic presentation (by exam) Assessment and Plan Status: Reassuring Anticipate: Vaginal Delivery Additional Comments Patients DLFB has come out she is 10/13/-3. She already has pitocin running. Her epidural is working well. Will proceed with IOL with pitocin and reassess in 4- 6h or sooner if clinically indicated. AGGIE RABAGO DO Jul 19, 2020 01:48
[2020-07-19] MEDS: ONDANSETRON 4MG/2ML VIAL IV PRN (02:01)
[2020-07-19] MEDS: FENTANYL/ROPIVACAINE/NACL BAG 100 ML EPIDURAL SCH ×2 (02:12→10:24)
[2020-07-19] MEDS: LR 1,000 ML IV SCH ×4 (02:49→18:22)
[2020-07-19] MEDS: OMEPRAZOLE 20 MG CAP PO SCH (09:00)
--- NOTE | 2020-07-19 10:35 | IPNPDOC ---
Obstetrical Progress Note Date of Service Jul 19, 2020 Subjective 25 yo at 37w2d with BRADY of 07 AUG 2020 admitted for IOL for CHTN on labetalol 100 mg BID. She has an epidural that was just re-bolused by anesthesia. She is feeling comfortable at this time. She denies headache, chest pain, RUQ pain, and visual changes. She has supportive family at the bedside. Objective Vital Signs Date Time Temp Pulse Resp B/P (MAP) Pulse Ox O2 Delivery O2 Flow Rate FiO2 07/19/20 06:22 110 16 110/58 (75) 07/19/20 05:22 97.8 07/18/20 22:53 98 Room Air AROM for clear fluid FSE and IUPC placed without difficulty due to maternal habitus for ease of monitoring contractions and fetus Pitocin at 14 mu/min Assessment Heart Rate (FHR): 155 Variability: Moderate Accelerations: Present Decelerations: Variable Tocometer Contractions: Yes Duration: other (every 3-4 minutes) Sterile Vaginal Examination Dilation: 7 cm Effacement (%): 80% Station: -3 Cervical Consistency: Soft Cervical Position: Middle Postion/Presentation: Cephalic presentation Assessment and Plan Age: 25 : 1 Term: 0 Pre-term: 0 Abortions: 0 Livin EGA at Admission: 37 (+1) Weeks & Days 37w2d Group B Streptococcus: Unknown Anticipate: Vaginal Delivery SERGIO LEONARDO CNM Jul 19, 2020 08:27
[2020-07-19] MEDS ORDERED: OXYTOCIN DRIP 30 UNITS in IV 1 EA IV SCH (14:25)
[2020-07-19] MEDS ORDERED: ANUSOL HC CREAM 30GM TOP PRN (14:30)
[2020-07-19] MEDS ORDERED: MEASLES,MUMPS,RUBELLA VACCINE INJ (MMR-II) (90707) SC SCH (14:30)
[2020-07-19] MEDS ORDERED: ACETAMINOPHEN TAB 650MG DOSE (2X325MG) PO PRN (14:30)
[2020-07-19] MEDS ORDERED: IBUPROFEN 600MG TAB PO PRN (14:30)
[2020-07-19] MEDS ORDERED: METHYLERGONOVINE MALEATE 0.2 MG TAB PO PRN (14:30)
[2020-07-19] MEDS ORDERED: PROMETHAZINE 25 MG TAB PO PRN (14:30)
[2020-07-19] MEDS ORDERED: DIBUCAINE 1% OINTMENT 30GM TOP PRN (14:30)
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
[2020-07-19] MEDS ORDERED: LABETALOL 100MG/20ML VIAL IV STA (14:48)
[2020-07-19] MEDS ORDERED: MAG Sulf (L&D) 4 GM/100 ML 4 GM in IV 1 EA IV ONE (15:35)
[2020-07-19] MEDS: LABETALOL 100MG TAB PO SCH ×2 (15:48→20:50)
[2020-07-19 15:56] LABS: HEMATOCRIT 34.9 % (36.0-47.0); HEMOGLOBIN 11.8 g/dl (12.0-15.5); MEAN CORPUSCULAR HEMOGLOBIN 29.2 pg (27.0-33.0); MEAN CORPUSCULAR HGB CONC 33.8 g/dl (32.0-36.5); MEAN CORPUSCULAR VOLUME 86.4 fl (80.0-96.0); PLATELET COUNT, AUTOMATED 225 10^3/uL (150-450); RED BLOOD COUNT 4.04 10^6/uL (4.00-5.40); WHITE BLOOD COUNT 17.4 10^3/uL (4.0-10.0)
[2020-07-19] MEDS: MAG Sulf (OBGYN) 20GM/500ML 20,000 MG in IV 1 EA IV SCH (16:50)
[2020-07-19 16:58] LABS: ALT/SGPT 16 U/L (12-78); BILIRUBIN,TOTAL 0.5 MG/DL (0.2-1.0); CREATININE FOR GFR 0.81 MG/DL (0.55-1.30); GLOMERULAR FILTRATION RATE > 60.0 (>60); LDH LACTATE DEHYDROGENASE 281 U/L (84-246); URIC ACID 3.4 MG/DL (2.6-6.0)
[2020-07-19] MEDS: DOCUSATE SODIUM 100MG CAPSULE PO SCH (20:49)
[2020-07-19] MEDS ORDERED: LABETALOL 100MG TAB PO SCH (21:00)
[2020-07-19] MEDS: IBUPROFEN 800 MG TAB PO PRN (23:03)
[2020-07-20] VITALS (26 sets, daily range): BP systolic 108–143; BP diastolic 59–87
[2020-07-20] MEDS: MAG Sulf (OBGYN) 20GM/500ML 20,000 MG in IV 1 EA IV SCH ×2 (01:55→12:21)
[2020-07-20] MEDS: LR 1,000 ML IV SCH (05:33)
--- NOTE | 2020-07-20 05:39 | IPNPDOC ---
Text Note Date of Service The patient was seen on 07/20/20. NOTE Item Value Date Time Creatinine 0.81 MG/DL 07/19/20 1543 Glomerular Filtration Rate > 60.0 07/19/20 1543 Uric Acid 3.4 MG/DL 07/19/20 1543 Total Bilirubin 0.5 MG/DL # 07/19/20 1543 Aspartate Amino Transf (AST/SGOT) 25 U/L 07/19/20 1543 Alanine Aminotransferase (ALT/SGPT) 16 U/L 07/19/20 1543 Lactate Dehydrogenase 281 U/L H 07/19/20 1543 Creatinine 0.83 MG/DL 07/18/20 0812 Glomerular Filtration Rate > 60.0 07/18/20 0812 Uric Acid 3.2 MG/DL 07/18/20 0812 Total Bilirubin 0.3 MG/DL 07/18/20 0812 Aspartate Amino Transf (AST/SGOT) 37 U/L 07/18/20 0812 Alanine Aminotransferase (ALT/SGPT) 21 U/L 07/18/20 0812 Lactate Dehydrogenase 335 U/L H 07/18/20 0812 Item Value Date Time White Blood Count 17.4 10^3/uL H 07/19/20 1543 Red Blood Count 4.04 10^6/uL 07/19/20 1543 Hemoglobin 11.8 g/dl L 07/19/20 1543 Hematocrit 34.9 % L 07/19/20 1543 Mean Corpuscular Volume 86.4 fl 07/19/20 1543 Mean Corpuscular Hemoglobin 29.2 pg 07/19/20 1543 Mean Corpuscular Hemoglobin Concent 33.8 g/dl 07/19/20 1543 Red Cell Distribution Width 12.9 % 07/19/20 1543 Platelet Count 225 10^3/uL 07/19/20 1543 Nucleated Red Blood Cells % (auto) 0.0 % 07/19/20 1543 White Blood Count 5.8 10^3/uL 07/18/20 0812 Red Blood Count 4.21 10^6/uL 07/18/20 0812 Hemoglobin 12.0 g/dl 07/18/20 0812 Hematocrit 36.8 % 07/18/20 0812 Mean Corpuscular Volume 87.4 fl 07/18/20 0812 Mean Corpuscular Hemoglobin 28.5 pg 07/18/20 0812 Mean Corpuscular Hemoglobin Concent 32.6 g/dl 07/18/20 0812 Red Cell Distribution Width 13.0 % 07/18/20811 Platelet Count 230 10^3/uL 07/18/20 0812 Nucleated Red Blood Cells % (auto) 0.0 % 07/18/20 0812 07/20/20 AT 0530 AM. REVIEW PROGRESS TO DATE. 25 YO ADMITTED FOR IOL AT 37.1 WEEKS DUE TO CHTN ON MEDICATION.BMI 41 . POST HAD MID RANGE BP, TRENDING TOWARDS SEVERE RANGE REQUIRING IV MEDICATION AND DECREASED URINARY OUTPUT. PATIENT STARTED ON MGSO4. BLOOD PRESSURES DROPPED TO NORMAL RANGE DIURESIS 100-150 CC PER HOUR.REFLEXES NORMAL NO VISUAL DISTURBANCES NO RUQ PAIN. PLAN CONTINUE MGSO4 X 24 HOURS THEN D/C MONITOR BLOOD WORK . Vital Signs Label Value Date Time Respiratory Rate 18 bpm 07/19/202041 Pulse 100 07/19/202041 Blood Pressure Assessment 140/69 (92) 07/19/202041 Source Automatic Cuff (NIBP) Blood Pressure Assessment 140/69 (92) 07/19/202026 Source Automatic Cuff (NIBP) Respiratory Rate 18 bpm 07/19/202026 Pulse 100 07/19/202026 Pulse 98 07/19/202011 Respiratory Rate 18 bpm 07/19/202011 Blood Pressure Assessment 136/68 (90) 07/19/202011 Source Automatic Cuff (NIBP) Pulse 103 07/19/201956 Patient Temperature 98.4 degrees F 07/19/201956 Temperature Source Temporal 07/19/201956 Respiratory Rate 18 bpm 07/19/201956 Blood Pressure Assessment 136/71 (92) 07/19/201956 Source Automatic Cuff (NIBP) Blood Pressure Assessment 132/66 (88) 07/19/201941 Source Automatic Cuff (NIBP) Respiratory Rate 18 bpm 07/19/201941 Pulse 105 07/19/201941 Pulse 104 07/19/201926 Respiratory Rate 18 bpm 07/19/201926 Blood Pressure Assessment 136/85 (102) 07/19/201926 Source Automatic Cuff (NIBP) VS,Fishbone, I+O VS, Fishbone, I+O Laboratory Tests 07/19/20 15:43 Vital Signs Date Time Temp Pulse Resp B/P (MAP) Pulse Ox O2 Delivery O2 Flow Rate FiO2 07/19/20 21:57 107 18 133/73 (93) 07/19/20 19:57 98.4 07/18/20 22:53 98 Room Air I&O- Last 24 Hours up to 6 AM 07/20/20 06:00 Intake Total 5709 ml Output Total 5825 ml Balance -116 ml Adelso Arredondo MD Jul 20, 2020 05:33
[2020-07-20 07:09] LABS: HEMATOCRIT 32.5 % (36.0-47.0); MEAN CORPUSCULAR HEMOGLOBIN 29.3 pg (27.0-33.0); MEAN CORPUSCULAR HGB CONC 33.8 g/dl (32.0-36.5); MEAN CORPUSCULAR VOLUME 86.4 fl (80.0-96.0); PLATELET COUNT, AUTOMATED 221 10^3/uL (150-450); RED BLOOD COUNT 3.76 10^6/uL (4.00-5.40); WHITE BLOOD COUNT 14.6 10^3/uL (4.0-10.0)
[2020-07-20 07:39] LABS: ALBUMIN 2.1 GM/DL (3.2-5.2); ALT/SGPT 16 U/L (12-78); BILIRUBIN,TOTAL 0.2 MG/DL (0.2-1.0); BLOOD UREA NITROGEN 2 MG/DL (7-18); CALCIUM LEVEL 7.4 MG/DL (8.5-10.1); CARBON DIOXIDE LEVEL 23 MEQ/L (21-32); CHLORIDE LEVEL 109 MEQ/L (98-107); CREATININE FOR GFR 0.78 MG/DL (0.55-1.30); GLOMERULAR FILTRATION RATE > 60.0 (>60); GLUCOSE, FASTING 96 MG/DL (70-100); LDH LACTATE DEHYDROGENASE 241 U/L (84-246); MAGNESIUM LEVEL 5.1 MG/DL (1.8-2.4); POTASSIUM SERUM 3.5 MEQ/L (3.5-5.1); SODIUM LEVEL 139 MEQ/L (136-145); TOTAL PROTEIN 5.4 GM/DL (6.4-8.2)
[2020-07-20] MEDS: PRENATAL VITAMINS CHEWABLE TABLET PO SCH (08:34)
[2020-07-20] MEDS: IBUPROFEN 800 MG TAB PO PRN ×2 (08:34→19:52)
[2020-07-20] MEDS: DOCUSATE SODIUM 100MG CAPSULE PO SCH ×2 (08:35→19:52)
[2020-07-20] MEDS: LABETALOL 200 MG TAB PO SCH ×2 (08:42→21:37)
[2020-07-20] MEDS: ACETAMINOPHEN 500 MG TAB PO PRN ×2 (12:23→22:29)
[2020-07-20 20:40] LABS: TOTAL PROTEIN,RANDOM URINE 55.8 MG/DL (0.0-12.0)
[2020-07-21 02:00] VITALS: BP 133/70
[2020-07-21 06:00] VITALS: BP 122/69
[2020-07-21 08:00] VITALS: BP 156/83
[2020-07-21 08:10] VITALS: BP 153/88
--- NOTE | 2020-07-21 08:46 | OBDS ---
[facility] Obstetrical Discharge Sum. Obstetrical Discharge Summary Date: Jul 21, 2020 : 1 Term: 1 Pre-term: 0 Abortions: 0 Livin VDRL: Non-Reactive Rh: Positive Rubella: Immune Labor IOL for hypertension Delivery Sex: Female Anesthesia: Regional Anesthesia Episiotomy periurethral and sulcal lacerations A/P, Post Course List any complications Admission diagnosis: IOL for hypertension Discharge diagnosis: day 2 pp , pre ecclampsia Condition at Discharge: stable Discharge Instructions: Home Activity: ad karla Diet: reg Medications: at [place] Follow-up: 2 day BP check, 2 wk mental health visit, 6wk PP exam Other: LESVIA CAMEJO CNM Jul 21, 2020 08:46
[2020-07-21] MEDS ORDERED: CALCIUM CARBONATE 500 MG CHEW U/D PO PRN (08:50)
[2020-07-21 09:09] VITALS: BP 149/90
[2020-07-21] MEDS: PRENATAL VITAMINS CHEWABLE TABLET PO SCH (09:09)
[2020-07-21] MEDS: LABETALOL 200 MG TAB PO SCH (09:09)
[2020-07-21] MEDS: DOCUSATE SODIUM 100MG CAPSULE PO SCH (09:09)
[2020-07-21] MEDS: IBUPROFEN 800 MG TAB PO PRN (09:13)
[2020-07-21 09:15] VITALS: BP 149/90
[2020-07-21] MEDS ORDERED: ACET-683 PO (09:23)
[2020-07-21] MEDS ORDERED: IBUP80TA PO (09:23)
== END 2020-07-21 11:11 | disposition home or self-care (01) | DRG 806 ==
LOC: M LDI 07:17 → M OBS 07-20 17:26
PROVIDERS: ADMIT Obstetrics & Gynecology; ATTEND Obstetrics & Gynecology
PROC: 3E033VJ Introduction of Other Hormone into Peripheral Vein, Percutaneous Approach (ICD-10-PCS; 2020-07-18)
PROC: 3E0DXGC Introduction of Other Therapeutic Substance into Mouth and Pharynx, External Approach (ICD-10-PCS; 2020-07-18)
PROC: 10E0XZZ Delivery of Products of Conception, External Approach (ICD-10-PCS; principal; 2020-07-19)
DX: O10.92 Unspecified pre-existing hypertension complicating childbirth (principal); Z37.0 Single live birth; Z68.41 Body mass index [BMI] 40.0-44.9, adult; Z3A.37 37 weeks gestation of pregnancy; E66.01 Morbid (severe) obesity due to excess calories; O99.214 Obesity complicating childbirth; K21.9 Gastro-esophageal reflux disease without esophagitis; O99.62 Diseases of the digestive system complicating childbirth; Z91.410 Personal history of adult physical and sexual abuse; Z79.82 Long term (current) use of aspirin